=== PATIENT | male | born 1955 | race Caucasian/White ===

== ENCOUNTER 2021-05-30 05:27 | Day surgery (SDC) | payer BC ==
[~2021-05-30] VITALS: Ht 167.6 cm; Wt 71.7 kg
[2021-05-30 06:10] VITALS: BP 102/77; PULSE 72; TEMP 98.6
[2021-05-30] MEDS ORDERED: OMNICEF 300MG300 MG PO (06:12)
[2021-05-30] MEDS ORDERED: VITAMIND3 5000 PO (06:12)
[2021-05-30] MEDS ORDERED: VALTREX 50500 MG/TAB PO (06:13)
[2021-05-30] MEDS ORDERED: OTEZLA PO (06:13)
[2021-05-30 08:25] VITALS: BP 106/69; PULSE 73; TEMP 97.8
[2021-05-30] MEDS ORDERED: NORCO 325 MG-51 TAB PO (08:26)
[2021-05-30 08:40] VITALS: BP 110/66; PULSE 76
--- NOTE | 2021-05-30 08:40 | NUR ---
Patient's lorena back into room. Patient requesting water and more rest.
[2021-05-30 08:55] VITALS: BP 116/81; PULSE 84
--- NOTE | 2021-05-30 08:55 | NUR ---
Patient awake and alert requesting water and toast. Patient tolerated both well. Stating he is having some abdominal discomfort.
[2021-05-30 09:10] VITALS: BP 123/82; PULSE 76
--- NOTE | 2021-05-30 09:30 | NUR ---
Patient tolerated food and drink. Pain under control. No complaint of nausea. Discharge instructions discussed with patient and his . Questions answered. Patient got dressed with assistance of his . Patient escorted to patient entrance via wheelchair and independently got into personal van. Patient left in the care of his .
--- NOTE | 2021-05-30 09:54 | NUR ---
Patient brought back into [facility]. Patient drowsy but arousable. Report recieved from CONNIE Lebron and TANA Joyner. Patient resting with eyes closed, call light within reach.
== END 2021-05-30 09:45 | disposition home or self-care (01) ==
LOC: SDCO 05:27
DX: K40.90 Unilateral inguinal hernia, without obstruction or gangrene, not specified as recurrent (principal); Z79.82 Long term (current) use of aspirin; Z79.899 Other long term (current) drug therapy
CPT/HCPCS: C1781; J0690; J1100; J1885; J2250; J2405; J2704; J3010; J7120

== ENCOUNTER 2021-09-22 07:56 | Day surgery (SDC) | payer BC ==
[~2021-09-22] VITALS: Ht 167.6 cm; Wt 68.9 kg
[~2021-09-22 07:56] MED LIST: NORCO 325 MG-51 TAB PO; OMNICEF 300MG300 MG PO; OTEZLA PO; VALTREX 50500 MG/TAB PO; VITAMIND3 5000 PO
[2021-09-22 08:37] VITALS: BP 120/80; PULSE 72; TEMP 97.7
[2021-09-22] MEDS ORDERED: ASPIRIN 81M81 MG/TA2 PO (08:58)
[2021-09-22] MEDS ORDERED: FLONASEALLERGY NS (08:59)
[2021-09-22 09:50] VITALS: BP 102/71; PULSE 70; TEMP 97.7
--- NOTE | 2021-09-22 09:50 | NUR ---
Pt returns to [facility], sleepy but able to ambulate to recliner easily, denies pain or nausea. Provided with a coffee and muffin. at bedside. Call light in reach.
[2021-09-22 10:05] VITALS: BP 123/80; PULSE 77
--- NOTE | 2021-09-22 10:30 | NUR ---
Discharge instructions provided after pt talks with Dr. Souza. Pt denies pain or nausea. Dressed and taken out by NIKOLAS Johnson via wheelchair and he is left in care of his .
== END 2021-09-22 10:30 | disposition home or self-care (01) ==
LOC: SDCO 07:56
DX: Z12.11 Encounter for screening for malignant neoplasm of colon (principal)
CPT/HCPCS: J2704; J7120